=== PATIENT | male | born 1950 | race Caucasian/White ===

== ENCOUNTER 2021-01-27 16:20 | Emergency (ER) | payer BC, MEDICARE ==
[~2021-01-27] VITALS: Ht 180.3 cm; Wt 113.3 kg
--- NOTE | 2021-01-27 16:41 | ED General ---
General Chief Complaint: Dizziness/Syncope Stated Complaint: LOW BP History of Present Illness Date Seen by Provider: January 27, 2021 Time Seen by Provider: 16:30 Initial Comments 70-year-old male presents with complaint of feeling lightheaded and dizzy today. Primarily when changing positions from seated to standing or when bending over. He did check his blood pressure and it was low at home. He takes lisinopril 40 mg daily for the past 10 years for hypertension and has not had any recent changes to his medication. He has been taking doxycycline for the past 7 days for "diverticulitis". His doctor is in [facility]. Denies nausea or vomiting, but admits to decreased fluid intake because of loose stools. Allergies and Home Medications Allergies Coded Allergies: No Known Drug Allergies (Unverified , 01/27/21) Patient Home Medication List Home Medication List Reviewed: Yes Review of Systems Review of Systems Constitutional: No chills; dizziness; No fever; malaise; No weakness Respiratory: No cough, No short of breath Cardiovascular: No chest pain, No edema, No palpitations, No syncope Gastrointestinal: see HPI; No abdominal pain, No constipation; diarrhea, loss of appetite; No nausea, No vomiting Genitourinary: No decreased output, No frequency, No hematuria Musculoskeletal: No back pain, No joint pain Past Jlrsnot-[id number] Hx Past Med/Social Hx: Reviewed Nursing Past Med/Soc Hx Physical Exam Vital Signs Vital Signs - First Documented 01/27/21 16:27 Temp 36.3 Pulse 82 Resp 18 B/P (MAP) 111/62 (78) Pulse Ox 96 O2 Delivery Room Air Capillary Refill : Height, Weight, BMI Height: '" Weight: lbs. oz. kg; BMI Method: General Appearance: No Apparent Distress, WD/WN HEENT: PERRL/EOMI, TMs Normal, Normal ENT Inspection Neck: Non Tender, Supple Respiratory: Chest Non Tender, Lungs Clear, Normal Breath Sounds, No Accessory Muscle Use Cardiovascular: Regular Rate, Rhythm, No Edema, No JVD Gastrointestinal: Normal Bowel Sounds, Non Tender, Soft Back: Normal Inspection, No CVA Tenderness Extremity: Normal Capillary Refill, Normal Inspection, Non Tender Neurologic/Psychiatric: Alert, Oriented x3, No Motor/Sensory Deficits Skin: Normal Color, Warm/Dry Progress/Results/Core Measures Suspected Sepsis SIRS Temperature: Pulse: Respiratory Rate: Laboratory Tests 01/27/21 16:33: White Blood Count 11.9H Blood Pressure / Mean: Laboratory Tests 01/27/21 16:33: Creatinine 1.93H, Platelet Count 220, Total Bilirubin 0.5 Results/Orders Lab Results Laboratory Tests Test 01/27/21 16:33 01/27/21 17:09 Range/Units White Blood Count 11.9 H 4.3-11.0 10^3/uL Red Blood Count 4.07 L 4.35-5.85 10^6/uL Hemoglobin 13.7 13.3-17.7 G/DL Hematocrit 40 40-54 % Mean Corpuscular Volume 98 80-99 FL Mean Corpuscular Hemoglobin 34 25-34 PG Mean Corpuscular Hemoglobin Concent 34 32-36 G/DL Red Cell Distribution Width 14.0 10.0-14.5 % Platelet Count 220 130-400 10^3/uL Mean Platelet Volume 9.4 7.4-10.4 FL Immature Granulocyte % (Auto) 1 % Neutrophils (%) (Auto) 73 42-75 % Lymphocytes (%) (Auto) 13 12-44 % Monocytes (%) (Auto) 10 0-12 % Eosinophils (%) (Auto) 3 0-10 % Basophils (%) (Auto) 1 0-10 % Neutrophils # (Auto) 8.6 H 1.8-7.8 X 10^3 Lymphocytes # (Auto) 1.6 1.0-4.0 X 10^3 Monocytes # (Auto) 1.2 H 0.0-1.0 X 10^3 Eosinophils # (Auto) 0.3 0.0-0.3 10^3/uL Basophils # (Auto) 0.1 0.0-0.1 10^3/uL Immature Granulocyte # (Auto) 0.1 0.0-0.1 10^3/uL Percent Immature Platelet Fraction 1.7 0.0-7.6 % Sodium Level 137 135-145 MMOL/L Potassium Level 4.4 3.6-5.0 MMOL/L Chloride Level 100 98-107 MMOL/L Carbon Dioxide Level 25 21-32 MMOL/L Anion Gap 12 5-14 MMOL/L Blood Urea Nitrogen 25 H 7-18 MG/DL Creatinine 1.93 H 0.60-1.30 MG/DL Estimat Glomerular Filtration Rate 34 BUN/Creatinine Ratio 13 Glucose Level 115 H 70-105 MG/DL Calcium Level 9.4 8.5-10.1 MG/DL Corrected Calcium 9.2 8.5-10.1 MG/DL Total Bilirubin 0.5 0.1-1.0 MG/DL Aspartate Amino Transf (AST/SGOT) 21 5-34 U/L Alanine Aminotransferase (ALT/SGPT) 29 0-55 U/L Alkaline Phosphatase 73 40-136 U/L Total Protein 6.9 6.4-8.2 GM/DL Albumin 4.2 3.2-4.5 GM/DL Urine Color YELLOW Urine Clarity CLEAR Urine pH 8.0 5-9 Urine Specific [place] 1.015 L 1.016-1.022 Urine Protein TRACE H NEGATIVE Urine Glucose (UA) NEGATIVE NEGATIVE Urine Ketones NEGATIVE NEGATIVE Urine Nitrite NEGATIVE NEGATIVE Urine Bilirubin NEGATIVE NEGATIVE Urine Urobilinogen 0.2 < = 1.0 MG/DL Urine Leukocyte Esterase NEGATIVE NEGATIVE Urine RBC (Auto) NEGATIVE NEGATIVE Urine RBC NONE /HPF Urine WBC 0-2 /HPF Urine Squamous Epithelial Cells NONE /HPF Urine Crystals NONE /LPF Urine Bacteria TRACE /HPF Urine Casts PRESENT /LPF Urine Hyaline Casts 0-2 H /LPF Urine Mucus NEGATIVE /LPF Urine Culture Indicated NO My Orders Orders - ABUNDIOVENSTRICKY OWENS DO Ed Iv/Invasive Line Start (01/27/21 16:41) Ekg Tracing (01/27/21 16:41) Cbc With Automated Diff (01/27/21 16:41) Comprehensive Metabolic Panel (01/27/21 16:41) Urinalysis (01/27/21 16:41) Ns Iv 1000 Ml (Sodium Chloride 0.9%) (01/27/21 17:30) Ns Iv 1000 Ml (Sodium Chloride 0.9%) (01/27/21 17:12) Vital Signs/I&O 01/27/21 16:27 Temp 36.3 Pulse 82 Resp 18 B/P (MAP) 111/62 (78) Pulse Ox 96 O2 Delivery Room Air Capillary Refill : Progress Note : Progress Note Denies Hx of kidney problems, admits to not drinking as much for the past couple weeks. Advised to call his PCP tomorrow to arrange for repeat labs in 3 days. Also advised to cut his lisinopril dose from 40 to 20mg daily. Pt agrees and understands. ECG Initial ECG Impression Date: January 27, 2021 Initial ECG Impression Time: 16:30 Initial ECG Rate: 84 Initial ECG Rhythm: Normal Sinus Initial ECG Intervals: Normal Initial ECG Impression: Normal Initial ECG Comparisson: No Previous ECG Available Comment old inf ischemic change Departure Impression Primary Impression: Dizziness Additional Impressions: Dehydration ARF (acute renal failure) Qualified Codes: N17.9 - Acute kidney failure, unspecified Disposition: 01 HOME, SELF-CARE Condition: Improved Departure-Patient Inst. Decision time for Depature: 17:35 Referrals: NO,LOCAL PHYSICIAN (PCP/Family) Primary Care Physician Patient Instructions: Dehydration, Adult (DC), Kidney Failure (DC) Add. Discharge Instructions: Call your PCP, Dr Jayy Oliva tomorrow to arrange for REPEAT labs to check your kidney function in 3 days. Take 1/2 your blood pressure medication (Lisinopril) until instructed otherwise by your PCP. Take 20mg, NOT 40mg daily. All discharge instructions reviewed with patient and/or family. Voiced understanding. RICKY WAGNER DO January 27, 2021 16:41
[2021-01-27 16:55] LABS: BASOPHILS % (AUTO) 1 % (0-10); EOSINOPHILS % (AUTO) 3 % (0-10); HEMATOCRIT 40 % (40-54); HEMOGLOBIN 13.7 G/DL (13.3-17.7); LYMPHOCYTES % (AUTO) 13 % (12-44); MEAN CORPUSCULAR HEMOGLOBIN 34 PG (25-34); MEAN CORPUSCULAR HGB CONC 34 G/DL (32-36); MEAN CORPUSCULAR VOLUME 98 FL (80-99); MEAN PLATELET VOLUME 9.4 FL (7.4-10.4); MONOCYTES % (AUTO) 10 % (0-12); NEUTROPHILS % (AUTO) 73 % (42-75); PLATELET COUNT 220 10^3/uL (130-400); WHITE BLOOD COUNT 11.9 10^3/uL (4.3-11.0)
[2021-01-27 16:56] LABS: BASOPHILS # (AUTO) 0.1 10^3/uL (0.0-0.1); EOSINOPHILS # (AUTO) 0.3 10^3/uL (0.0-0.3); LYMPHOCYTES # (AUTO) 1.6 X 10^3 (1.0-4.0); MONOCYTES # (AUTO) 1.2 X 10^3 (0.0-1.0); NEUTROPHILS # (AUTO) 8.6 X 10^3 (1.8-7.8)
[2021-01-27] MEDS ORDERED: NS IV 1000 ML 1,000 ML ONE (17:12)
[2021-01-27 17:24] LABS: POTASSIUM 4.4 MMOL/L (3.6-5.0)
[2021-01-27 17:25] LABS: ALBUMIN 4.2 GM/DL (3.2-4.5); BILIRUBIN,TOTAL 0.5 MG/DL (0.1-1.0); CALCIUM 9.4 MG/DL (8.5-10.1); CREATININE SERUM 1.93 MG/DL (0.60-1.30); TOTAL PROTEIN 6.9 GM/DL (6.4-8.2)
[2021-01-27] MEDS ORDERED: NS IV 1000 ML 1,000 ML IV SCH (17:30)
[2021-01-27 17:31] LABS: COLOR,URINE YELLOW
[2021-01-27 17:32] LABS: BACTERIA,URINE TRACE /HPF; BILIRUBIN,URINE NEGATIVE (NEGATIVE); CLARITY,URINE CLEAR; GLUCOSE, URINE (UA) NEGATIVE (NEGATIVE); HYALINE CASTS, URINE 0-2 /LPF; KETONES,URINE NEGATIVE (NEGATIVE); LEUKOCYTE ESTERASE ,URINE NEGATIVE (NEGATIVE); NITRITE,URINE NEGATIVE (NEGATIVE); PROTEIN,URINE TRACE (NEGATIVE); WBC,URINE 0-2 /HPF
[2021-01-27 18:06] VITALS: BP 110/56
== END 2021-01-27 17:59 | disposition home or self-care (01) ==
LOC: ER FS 16:22
DX: E86.0 Dehydration (principal); N17.9 Acute kidney failure, unspecified; I10 Essential (primary) hypertension; Z79.899 Other long term (current) drug therapy
CPT/HCPCS: 36415; 80053; 81000; 85025; 93005

== ENCOUNTER → 2021-01-30 | Outpatient (CLI) | payer BC, MEDICARE ==
[2021-01-30 14:44] LABS: ALBUMIN 3.9 GM/DL (3.2-4.5); BILIRUBIN,TOTAL 0.8 MG/DL (0.1-1.0); CALCIUM 9.1 MG/DL (8.5-10.1); CREATININE SERUM 1.26 MG/DL (0.60-1.30); POTASSIUM 4.2 MMOL/L (3.6-5.0); TOTAL PROTEIN 6.5 GM/DL (6.4-8.2)
== END ==
LOC: LAB FS 12:59
DX: N17.9 Acute kidney failure, unspecified (principal); E86.0 Dehydration
CPT/HCPCS: 36415; 80053

== ENCOUNTER → 2021-03-25 | Outpatient (CLI) | payer BC, MEDICARE ==
--- NOTE | 2021-03-25 12:59 | Diagnostic Imaging Report ---
PROCEDURE: NONINVAS EXT1-2LEV [id number] REASON FOR EXAM: PAIN IN RIGHT LEG COMPARISON: None. Technique: Segmental pressures and Doppler study with ankle brachial indices and toe brachial indices was performed at rest. Systolic blood pressure in the right brachial artery is 113 mm of Hg Systolic blood pressure in the left brachial artery is 123 mm of Hg Systolic blood pressure in the right posterior tibial artery is 183 mm of Hg The ankle brachial index (COY) on the right side is 1.49 at rest. Systolic blood pressure in the left posterior tibial artery is 186 mm of Hg The ankle brachial index (COY) on the left side is 1.51 at rest. Systolic blood pressure in the right dorsalis pedis is 154 mm of Hg The toe brachial index (TBI) on the right side is 1.25 at rest. Systolic blood pressure in the left dorsalis pedis is 126 mm of Hg The toe brachial index (TBI) on the left side is 1.02 at rest. The waveform in the right posterior tibial artery is biphasic The waveform in the right dorsalis pedis artery is biphasic The waveform in the left posterior tibial artery is biphasic The waveform in the left dorsalis pedis artery is biphasic Disease Severity and Ankle-Brachial Index (COY) ([facility] Vascular Laboratory Criteria) [facility] Proc. April 2008;[id number] [email or web address] Disease severity Normal: At rest >0.9 After exercise >0.9 Mild: At rest 0.8-0.9 After exercise 0.5-0.9 Moderate: At rest 0.5-0.79 After exercise 0.15-0.49 Severe: At rest <0.5 After exercise <0.15 Disease Severity and Toe Brachial Index (TBI) 0.64 +/- .20 limbs normal 0.52 =/- .20 claudication in limbs 0.23 =/- .19 limbs with ulcers or ischemic rest pain IMPRESSION: 1.Normal COY bilaterally, with the right measuring 1.49 and the left measuring 1.51. 2.Normal biphasic waveforms in the bilateral posterior tibial and dorsalis pedis arteries. Dictated by: Dictated on workstation # [id number]
== END ==
LOC: RAD 12:45
PROVIDERS: ATTEND Family Medicine
DX: M79.604 Pain in right leg (principal)
CPT/HCPCS: 93922

== ENCOUNTER 2021-10-07 14:35 | Emergency (ER) | payer BC, MEDICARE ==
[~2021-10-07] VITALS: Ht 177.8 cm; Wt 113.4 kg
[2021-10-07] MEDS ORDERED: LIDOCAINE 1% INJ 20 ML VIAL INJ STA (15:04)
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
--- NOTE | 2021-10-07 15:47 | Diagnostic Imaging Report ---
Clinical indication: Patient status post fall with laceration to back of head. Exam: Axial CT scan of the brain without IV contrast with coronal and sagittal reformatted images. Auto Exposure Controls were utilized during the CT exam to meet ALARA standards for radiation dose reduction. Comparison: None. Findings: There is very minimal subdural blood along the right parafalcine frontal region. There is no other areas of intracranial hemorrhage. The remainder of the brain parenchyma is unremarkable with normal rodriguez-white matter distinction. There is brain parenchymal volume loss. There is mild chronic small vessel ischemic disease. There is no hydrocephalus. Basal cisterns are unremarkable. There is a small to moderate amount of extracranial soft tissue swelling and laceration involving the midline aspect of the head. Skin lore are seen posteriorly. The brain parenchymal volume appears appropriate for patient's age. There is normal rodriguez-white matter distinction. There is no significant midline shift or herniation. There is no evidence of hydrocephalus. The basal cisterns are unremarkable. There are old traumatic findings in the right and left nasal bones and frontal processes of the left maxilla. There is subtle medial bony concave deformity of the medial wall left orbit which is chronic. The skull, extracranial soft tissue, and orbits are unremarkable. There is mild mucosal thickening and secretions involving the left maxillary sinus. There is minimal mucosal thickening involving the right maxillary sinus. Temporal bones show no significant abnormality. Impression: 1: There is minimal acute subdural blood along the right frontal parafalcine region. 2: There is no other intracranial hemorrhage. The brain parenchyma is unremarkable. 3: There is a small to moderate amount of extracranial soft tissue swelling and laceration of the posterior aspect of the head. There is no acute skull fracture. 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 Results of this report were discussed with Dr. Junaid Oswald via the telephone on 10/07/2021 at 1539 hours. Dictated by: Dictated on workstation # [id number]
--- NOTE | 2021-10-07 15:58 | Diagnostic Imaging Report ---
CLINICAL INDICATION: Patient is status post fall at [facility]. Patient has pelvic pain. EXAM: CT scan of the pelvis performed without IV contrast with sagittal and coronal reformatted images. Auto Exposure Controls were utilized during the CT exam to meet ALARA standards for radiation dose reduction. COMPARISON: None. FINDINGS: There is no fracture or dislocation involving the pelvis or hips. There are moderately hypertrophic spurs involving the bilateral acetabular regions and proximal femoral head/neck junction region. There is hypertrophic enthesopathy involving the greater trochanters bilaterally and ischium. There are hypertrophic spurs involving lumbar spine and facet arthropathy. Partially visualized double-J ureteral stent on the left side seen in the region of the bladder. There is mild fat stranding adjacent to the distal left ureter. Diverticulosis involving the descending colon and sigmoid colon seen with no diverticulitis. There is a fat-containing left inguinal hernia measuring 2.9 cm in greatest dimension. IMPRESSION: 1: There is no fracture or dislocation of the pelvis or hips. 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 Dictated by: Dictated on workstation # [id number]
[2021-10-07 16:49] LABS: BASOPHILS # (AUTO) 0.1 10^3/uL (0.0-0.1); BASOPHILS % (AUTO) 0 % (0-10); EOSINOPHILS # (AUTO) 0.1 10^3/uL (0.0-0.3); EOSINOPHILS % (AUTO) 1 % (0-10); HEMATOCRIT 36 % (40-54); HEMOGLOBIN 12.1 g/dL (13.3-17.7); LYMPHOCYTES # (AUTO) 1.4 10^3/uL (1.0-4.0); LYMPHOCYTES % (AUTO) 12 % (12-44); MEAN CORPUSCULAR HEMOGLOBIN 33 pg (25-34); MEAN CORPUSCULAR HGB CONC 33 g/dL (32-36); MEAN CORPUSCULAR VOLUME 98 fL (80-99); MEAN PLATELET VOLUME 9.8 fL (9.0-12.2); MONOCYTES # (AUTO) 0.9 10^3/uL (0.0-1.0); MONOCYTES % (AUTO) 8 % (0-12); NEUTROPHILS # (AUTO) 8.9 10^3/uL (1.8-7.8); NEUTROPHILS % (AUTO) 78 % (42-75); PLATELET COUNT 213 10^3/uL (130-400); WHITE BLOOD COUNT 11.4 10^3/uL (4.3-11.0)
[2021-10-07 16:52] LABS: BILIRUBIN,URINE NEGATIVE (NEGATIVE); CLARITY,URINE SL CLOUDY; GLUCOSE, URINE (UA) NEGATIVE (NEGATIVE); KETONES,URINE NEGATIVE (NEGATIVE); LEUKOCYTE ESTERASE ,URINE TRACE (NEGATIVE); PROTEIN,URINE 1+ (NEGATIVE)
[2021-10-07 16:53] LABS: INR 0.9 (0.8-1.4); PROTHROMBIN TIME PATIENT 12.3 SEC (12.2-14.7)
[2021-10-07 17:01] LABS: COLOR,URINE ORANGE
[2021-10-07 17:02] LABS: BACTERIA,URINE NEGATIVE /HPF; NITRITE,URINE POSITIVE (NEGATIVE); RBC,URINE >100 /HPF; SQUAMOUS EPITHELIAL CELL,UR RARE /HPF; WBC,URINE 0-2 /HPF
[2021-10-07 17:04] LABS: BILIRUBIN,TOTAL 0.6 MG/DL (0.1-1.0); CALCIUM 9.3 MG/DL (8.5-10.1); CREATININE SERUM 1.06 MG/DL (0.60-1.30); POTASSIUM 4.2 MMOL/L (3.6-5.0); TOTAL PROTEIN 6.9 GM/DL (6.4-8.2)
[2021-10-07 17:05] LABS: ALBUMIN 4.4 GM/DL (3.2-4.5)
[2021-10-07 17:55] VITALS: BP 145/78
== END 2021-10-07 17:55 | disposition short-term general hospital (02) ==
LOC: EDUNIT# 14:35 → ER FS 14:36
DX: S06.5X0A Traumatic subdural hemorrhage without loss of consciousness, initial encounter (principal); S01.01XA Laceration without foreign body of scalp, initial encounter; S30.0XXA Contusion of lower back and pelvis, initial encounter; M53.3 Sacrococcygeal disorders, not elsewhere classified; I10 Essential (primary) hypertension; R40.2410 Glasgow coma scale score 13-15, unspecified time; W18.30XA Fall on same level, unspecified, initial encounter
CPT/HCPCS: 12002; 36415; 70450; 72192; 80053; 81000; 85025; 85610; 85730; 93041

== ENCOUNTER → 2022-05-28 | Outpatient (CLI) | payer BC, MEDICARE ==
--- NOTE | 2022-05-28 11:21 | Diagnostic Imaging Report ---
CLINICAL INDICATIONS: Patient with sinusitis and questionable lacrimal duct obstruction. Teeth pulled recently with infection. Lower lid ectropion. EXAM: Axial CT scan of the orbits and sella without contrast. Sagittal and coronal reformatted images are created. Auto Exposure Controls were utilized during the CT exam to meet ALARA standards for radiation dose reduction. COMPARISON: None. FINDINGS: Dental hardware is seen which causes streak artifact obscuring portions of the oral cavity and adjacent soft tissue structures. There is cystic and smooth erosive changes involving the maxillary right molar region which surrounds a partially impacted tooth. There is consolidation of the bilateral nasal lacrimal duct regions which appear similar bilaterally. There is no bony erosive or destructive process. There is a small amount of air in the upper aspect of the right nasolacrimal duct. Orbits and globes are intact. There is no periorbital or retrobulbar abnormality. There is no significant extracranial soft tissue abnormality is visualized. There is bony irregularity involving the right and left nasal bone regions which may be from remote traumatic changes. Chronic medial convexity of the medial left orbital wall noted. There is [id number] amount of mucosal thickening and fluid involving left maxillary sinus. There is mild mucosal thickening involving the right maxillary sinus. There is minimal mucosal thickening involving the ethmoid sinus. There is bony thickening/sclerosis involving left maxillary sinus. Mastoid air cells are clear. Limited visualization intracranial structures are unremarkable. IMPRESSION: 1: The right and left nasal lacrimal duct has similar appearance with consolidation within them which is nonspecific. This may represent secretions or normal mucosa. There is no mass or bony erosive changes seen in the regions. There is no periorbital or intraorbital soft tissue abnormality. Globes are intact. 2: There is paranasal sinus disease or chronic bony sinusitis changes involving the left maxillary sinus. 3: There is a smoothly remodeled bony erosive changes involving the maxillary right molar region with a partially impacted tooth seen in the area. Direct visualization would better evaluate. Dictated by: Dictated on workstation # [id number]
== END ==
LOC: RAD 08:53
PROVIDERS: ATTEND Internal Medicine Gastroenterology
DX: J01.90 Acute sinusitis, unspecified (principal)
CPT/HCPCS: 70480

== ENCOUNTER → 2022-05-28 | Outpatient (CLI) | payer BC, MEDICARE ==
--- NOTE | 2022-05-28 13:21 | Diagnostic Imaging Report ---
INDICATION: Right elbow pain. COMPARISON: None. FINDINGS: Multiple radiographic views of the right elbow show no fractures, dislocations, or other acute bony abnormalities identified. Joint spaces are well maintained throughout. The soft tissues appear unremarkable. No radiopaque foreign bodies are identified. IMPRESSION: No acute fractures or dislocations of the right elbow. Dictated by: Dictated on workstation # [id number]
== END ==
LOC: RAD FS 09:25
PROVIDERS: ATTEND Nurse Practitioner Family
DX: M25.521 Pain in right elbow (principal)
CPT/HCPCS: 73080

== ENCOUNTER → 2022-07-29 | Outpatient (CLI) | payer BC, MEDICARE | LOC: CARDFS 13:34 | PROVIDERS: ATTEND Nurse Practitioner Family | DX: I35.0 Nonrheumatic aortic (valve) stenosis (principal); I51.7 Cardiomegaly | CPT/HCPCS: 93306 ==

== ENCOUNTER 2023-05-15 12:47 | Emergency (ER) | payer BC, MEDICARE ==
--- NOTE | 2023-05-15 13:14 | ED General ---
General Chief Complaint: Abdominal/GI Problems Stated Complaint: EPIGASTRIC/RT SHOULDER PAIN Source of Information: Patient History of Present Illness Date Seen by Provider: May 15, 2023 Time Seen by Provider: 12:52 Initial Comments 72-year-old male presenting with complaints of left-sided lower chest pain and epigastric pain for the last 2 days. He states that it has been constant but then he later states that pain comes and goes in intensity. He feels that it gets worse when he is trying to go from a sitting to standing position or moving. He has had had right shoulder pain since waking up this morning. He denies any fall or injury. He denies having any nausea or vomiting. He does report having some cough and mucus in his lungs this morning and was having some trouble trying to cough any mucus up. He reports that he is waiting to go on Tuesday to for a heart cath to look at a blocked artery. Timing/Duration: 2-3 Days Severity: Moderate Modifying Factors: worse with Movement Associated Systoms: Chest Pain (left lower lateral chest pain and epigastric pain), Cough; No Diaphoresis, No Fever/Chills, No Headaches, No Loss of Appetite, No Malaise, No Nausea/Vomiting, No Rash, No Seizure, No Shortness of Air, No Syncope, No Weakness Allergies and Home Medications Allergies Coded Allergies: No Known Drug Allergies (Unverified , 01/27/21) Patient Home Medication List Home Medication List Reviewed: Yes Azithromycin (Azithromycin) 500 Mg Tablet, 500 MG PO DAILY Prescribed by: LUANNE BLANCA on 05/15/23 1500 Review of Systems Review of Systems Constitutional: No chills, No diaphoresis, No dizziness, No fever, No malaise EENTM: no symptoms reported Respiratory: see HPI Cardiovascular: see HPI Gastrointestinal: No nausea, No vomiting Genitourinary: No dysuria Musculoskeletal: see HPI, joint pain (right shoulder pain) Skin: No rash Psychiatric/Neurological: No Symptoms Reported Past Ldfluog-Ciycfe-Ntaiep Hx Immunizations Up To Date First/Initial COVID19 Vaccinat: Jul 2021 Second COVID19 Vaccination Dewayne: Aug 2021 Seasonal Allergies Seasonal Allergies: No Past Medical History Surgery/Hospitalization HX: Aortic stenosis, HTN, Hyperlipidemia, Cholecystectomy, Appendectomy, Tonsillectomy and adenoidectomy Surgeries: Yes (rushing wu surgery, Inguinal hernia repair, ) Adenoidectomy, Appendectomy, Bowel Surgery, Gallbladder Cardiac: Yes High Cholesterol, Hypertension Neurological: No Genitourinary: Yes Benign Prostatic Hyperpl Gastroesophageal Reflux, Diverticulosis Musculoskeletal: Yes Gout Endocrine: No HEENT: Yes (wears glasses) Cancer: No Psychosocial: No Integumentary: No Blood Disorders: No Physical Exam Vital Signs Vital Signs - First Documented 05/15/23 12:55 Temp 37.0 Pulse 78 Resp 12 B/P (MAP) 120/61 (80) Pulse Ox 93 O2 Delivery Room Air Capillary Refill : Height, Weight, BMI Height: '" Weight: lbs. oz. 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 Norm as Tested Skin: Normal Color, Warm/Dry Focused Exam Lactate Level 05/15/23 13:10: Lactic Acid Level 0.63 Lactic Acid Level Laboratory Tests Test 05/15/23 13:10 Lactic Acid Level 0.63 MMOL/L (0.50-2.00) Progress/Results/Core Measures Suspected Sepsis SIRS Temperature: Pulse: Respiratory Rate: Laboratory Tests 05/15/23 13:10: White Blood Count 13.0H Blood Pressure / Mean: 05/15/23 13:10: Lactic Acid Level 0.63 Laboratory Tests 05/15/23 13:10: Creatinine 1.38H, INR Comment 0.9, Platelet Count 177, Total Bilirubin 0.6 Results/Orders Lab Results Laboratory Tests Test 05/15/23 13:10 05/15/23 13:23 Range/Units White Blood Count 13.0 H 4.3-11.0 10^3/uL Red Blood Count 3.61 L 4.30-5.52 10^6/uL Hemoglobin 11.6 L 13.3-17.7 g/dL Hematocrit 34 L 40-54 % Mean Corpuscular Volume 95 80-99 fL Mean Corpuscular Hemoglobin 32 25-34 pg Mean Corpuscular Hemoglobin Concent 34 32-36 g/dL Red Cell Distribution Width 12.8 10.0-14.5 % Platelet Count 177 130-400 10^3/uL Mean Platelet Volume 9.3 9.0-12.2 fL Immature Granulocyte % (Auto) 0 % Neutrophils (%) (Auto) 84 H 42-75 % Lymphocytes (%) (Auto) 6 L 12-44 % Monocytes (%) (Auto) 8 0-12 % Eosinophils (%) (Auto) 1 0-10 % Basophils (%) (Auto) 1 0-10 % Neutrophils # (Auto) 11.0 H 1.8-7.8 10^3/uL Lymphocytes # (Auto) 0.8 L 1.0-4.0 10^3/uL Monocytes # (Auto) 1.0 0.0-1.0 10^3/uL Eosinophils # (Auto) 0.2 0.0-0.3 10^3/uL Basophils # (Auto) 0.1 0.0-0.1 10^3/uL Immature Granulocyte # (Auto) 0.0 0.0-0.1 10^3/uL Neutrophils % (Manual) 83 % Lymphocytes % (Manual) 10 % Monocytes % (Manual) 6 % Eosinophils % (Manual) 1 % Prothrombin Time 12.5 12.2-14.7 SEC INR Comment 0.9 0.8-1.4 Activated Partial Thromboplast Time 28 24-35 SEC Sodium Level 128 L 135-145 MMOL/L Potassium Level 4.9 3.6-5.0 MMOL/L Chloride Level 93 L 98-107 MMOL/L Carbon Dioxide Level 24 21-32 MMOL/L Anion Gap 11 5-14 MMOL/L Blood Urea Nitrogen 28 H 7-18 MG/DL Creatinine 1.38 H 0.60-1.30 MG/DL Estimat Glomerular Filtration Rate 54 BUN/Creatinine Ratio 20 Glucose Level 146 H 70-105 MG/DL Lactic Acid Level 0.63 0.50-2.00 MMOL/L Calcium Level 9.3 8.5-10.1 MG/DL Corrected Calcium 9.5 8.5-10.1 MG/DL Magnesium Level 2.0 1.6-2.4 MG/DL Total Bilirubin 0.6 0.1-1.0 MG/DL Aspartate Amino Transf (AST/SGOT) 18 5-34 U/L Alanine Aminotransferase (ALT/SGPT) 14 0-55 U/L Alkaline Phosphatase 111 40-136 U/L Troponin I < 0.30 <0.30 NG/ML Pro-B-Type Natriuretic Peptide 164.8 H <125.0 PG/ML Total Protein 6.3 L 6.4-8.2 GM/DL Albumin 3.7 3.2-4.5 GM/DL Lipase 12 8-78 U/L SARS-CoV-2 RNA (RT-PCR) Not Detected Not Detecte My Orders Orders - LUANNE BLANCA MD Cbc With Automated Diff (05/15/23 13:04) Magnesium (05/15/23 13:04) Chest 1 View Ap/Pa Only (05/15/23 13:04) Ekg Tracing (05/15/23 13:04) Comprehensive Metabolic Panel (05/15/23 13:04) Protime With Inr (05/15/23 13:04) Partial Thromboplastin Time (05/15/23 13:04) O2 (05/15/23 13:04) Monitor-Rhythm Ecg Trace Only (05/15/23 13:04) Ed Iv/Invasive Line Start (05/15/23 13:04) Lipase (05/15/23 13:04) Troponin I Fs (05/15/23 13:04) Probnp Fs (05/15/23 13:04) Shoulder 3 View Right (05/15/23 13:04) Covid 19 Inhouse Test (05/15/23 13:04) Ketorolac Injection (Ketorolac Injection (05/15/23 13:15) Lactic Acid Analyzer (05/15/23 13:15) Manual Differential (05/15/23 13:10) Ns Iv 1000 Ml (Ns Iv 1000 Ml) (05/15/23 13:50) Ceftriaxone Iv/Im (Ceftriaxone Iv/Im) (05/15/23 14:42) Azithromycin Tablet (Azithromycin Tabl (05/15/23 14:42) Vital Signs/I&O 05/15/23 05/15/23 12:55 15:09 Temp 37.0 37.0 Pulse 78 75 Resp 12 12 B/P (MAP) 120/61 (80) 122/67 Pulse Ox 93 94 O2 Delivery Room Air Room Air Capillary Refill : Progress Note #1: Progress Note Potential diagnosis of pleuritic chest pain, pneumonia, myocardial infarction, pleural effusion, musculoskeletal chest wall pain, GERD. Placed on cardiac manager monitoring and my initial interpretation is that his rate is a sinus rhythm with a heart rate in the 70s. Obtain electrocardiogram to look in more detail for acute ischemia or arrhythmia. Establish peripheral IV access and send labs for complete blood count, comprehensive metabolic profile, troponin, lipase, magnesium, proBNP, coagulation factors. COVID swab to check for infection, chest x-ray 1 view to look for signs of infiltrate or effusion or pathology to cause pain. X-rays of the right shoulder again look for potential source of his pain. Administer Toradol 15 mg IV x1 to help with pain and inflammation. Progress Note #2: Time: 13:39 Progress Note Complete blood count shows white blood cell count upper limit of normal at 13,00 0. Mild anemia with hemoglobin of 11.6. Normal platelets of 177. His comprehensive metabolic profile shows some chronic hyponatremia with a sodium of 128. His potassium was okay at 4.9. His BUN was slightly elevated to 28 with a creatinine of 1.38. Glucose slightly elevated to 146. He had a negative lactic acid at 0.63. Magnesium was normal at 2. His troponin I was less than 0.3. Considering he has had pain constantly for 2 days if this was acute coronary syndrome or myocardial infarction I would expect this to be elevated by now. His proBNP value was 164.8. Lipase normal at 12. 1408 ordered a liter of normal saline to try and help with hydration since he has elevated BUN and creatinine. His 1 view chest x-ray showed opacity in his right lung base concerning for possible infection and 3 views of the right shoulder showed chronic degenerative changes. He has had some hypoxia with oxygen down to 87% on room air at times. This is likely due to his RLL pneumonia seen on CXR. Will start him on Rocephin 1 gm IV for pneumonia along with Azithromycin 500 mg po x 1 for pneumonia. If he maintains oxygen saturation at least 91% on room air and tolerates the antibiotics will plan on discharge to home. If he is dropping down into the 80s for his oxygen saturation then will have to check about at least observation admit since he does not use oxygen at home. Progress Note #3: Time: 14:58 Progress Note Covid swab is negative. Will monitor to see how his oxygen is doing on room air while antibiotics infuse. If maintaining oxygen saturation above 91% will discharge to home on antibiotics and litigation counsel on follow up and return precautions. If dropping into the 80s for his oxygen saturation then will check about possible observation admit for pneumonia with hypoxia. 1530 patient's oxygen saturations maintaining 92 to 96% on room air. Will discharge on Zithromax. Sent for 4 additional days of Zithromax 500 mg daily to finish out a course for pneumonia. He was given the first dose of Zithromax 500 mg here in the ED along with 1 g of Rocephin IV. Encouraged to try Tylenol and/or ibuprofen to help with the arthritis pain in his shoulder. Counseled to try taking Mucinex to help with congestion and cough. Make sure he is taking several deep breaths every hour while awake to help with improving his oxygen as well as clearing the pneumonia. Return or be seen again if symptoms are worsening instead of improving ECG Initial ECG Impression Date: May 15, 2023 Initial ECG Impression Time: 13:16 Initial ECG Rate: 75 Initial ECG Rhythm: Normal Sinus Initial ECG Comparisson: Unchanged (01/27/2021) Comment On my personal interpretation and review the electrocardiogram shows sinus rhythm with a heart rate of 75 bpm. There is no acute ST elevation. [place] interval slightly prolonged at 209 ms. He has inferior Q waves consistent with a possible history of myocardial inferior infarction. QT interval 369 ms with a QTc interval 398 ms. Overall appears similar to a tracing from January 27, 2021. Diagnostic Imaging Diagonstic Imaging: Xray Plain Films/CT/US/NM/MRI: chest Comments [facility] [place], [place] NAME: [facility] REC#: [id number] PT STATUS: REG ER : 1950 PHYSICIAN: LUANNE BLANCA MD ADMIT DATE: 05/15/23/ER FS Signed Date of Exam:05/15/23 CHEST 1 VIEW AP/PA ONLY CHEST 1 VIEW AP/PA ONLY INDICATION: cough, left sided chest pain x 2 days. COMPARISON: None. FINDINGS: Lungs: Low lung volume. Right basilar airspace opacity. Pleura: No pleural effusion or pneumothorax. Heart and Mediastinum: Prominent cardiac silhouette. Pulmonary vascular congestion.. Osseous Structures and Soft Tissues: No acute osseous abnormality. Normal soft tissues. IMPRESSION: Right basilar airspace opacity may represent infection or atelectasis. Low lung volume. Dictated by: Dictated on workstation # [id number] Dict: 05/15/23 1337 Trans: 05/15/23 1339 [facility] [id number] Interpreted by: MARY SAGE DO Electronically signed by: MARY SAGE DO 05/15/23 1339 Reviewed: Reviewed by Me Diagonstic Imaging: Xray Plain Films/CT/US/NM/MRI: other (Right shoulder) Comments [facility] [place] [place] NAME: [facility] REC#: [id number] PT STATUS: REG ER : 1950 PHYSICIAN: LUANNE BLANCA MD ADMIT DATE: 05/15/23/ER FS Draft Date of Exam:05/15/23 SHOULDER 3 VIEW RIGHT EXAMINATION: Right shoulder 2 or more views HISTORY: Shoulder pain COMPARISON: None available. FINDINGS: There is severe right glenohumeral osteoarthritis. No fracture is seen. There is moderate acromioclavicular osteoarthritis. No dislocation. IMPRESSION: 1. Severe right glenohumeral osteoarthritis. Dictated on workstation # [id number] Dict: 05/15/238 Trans: 05/15/23 1344 [facility] [id number] Interpreted by: SHANEKA ANDREWS MD Electronically signed by: Reviewed: Reviewed by Me Departure Impression Primary Impression: Pneumonia of right lower lobe due to infectious organism Additional Impressions: Dehydration Arthritis of shoulder region, right, degenerative Qualified Codes: M19.011 - Primary osteoarthritis, right shoulder Disposition: 01 HOME, SELF-CARE Condition: Improved Departure-Patient Inst. Decision time for Depature: 15:07 Referrals: MERT DYE MD (PCP) Primary Care Physician Patient Instructions: Pneumonia, Adult ED, Dehydration, Adult ED, Osteoarthritis (DC) Add. Discharge Instructions: Your Covid test was negative. Try to keep sipping on fluids to stay well-hydrated. Take the full course of antibiotics to treat for pneumonia. Try to consciously take deep breaths several times in an hour to help expand your lungs and help with the oxygen saturation level. Consider taking Plain Mucinex over the counter to help loosen mucus and congestion in your lungs. If having worsening symptoms or develop trouble breathing and shortness of breath then you should be seen again for further evaluation. All discharge instructions reviewed with patient and/or family. Voiced understanding. Scripts Azithromycin (Azithromycin) 500 Mg Tablet 500 MG PO DAILY for Pneumonia for 4 Days, #4 TAB 0 Refills Prov: LUANNE BLANCA MD 05/15/23 LUANNE BLANCA MD May 15, 2023 13:14
[2023-05-15] MEDS ORDERED: KETOROLAC INJ 15 MG/ML VIAL IVP STA (13:15)
[2023-05-15 13:16] LABS: BASOPHILS # (AUTO) 0.1 10^3/uL (0.0-0.1); BASOPHILS % (AUTO) 1 % (0-10); EOSINOPHILS # (AUTO) 0.2 10^3/uL (0.0-0.3); EOSINOPHILS % (AUTO) 1 % (0-10); HEMATOCRIT 34 % (40-54); HEMOGLOBIN 11.6 g/dL (13.3-17.7); LYMPHOCYTES # (AUTO) 0.8 10^3/uL (1.0-4.0); LYMPHOCYTES % (AUTO) 6 % (12-44); MEAN CORPUSCULAR HEMOGLOBIN 32 pg (25-34); MEAN CORPUSCULAR HGB CONC 34 g/dL (32-36); MEAN CORPUSCULAR VOLUME 95 fL (80-99); MEAN PLATELET VOLUME 9.3 fL (9.0-12.2); MONOCYTES % (AUTO) 8 % (0-12); NEUTROPHILS % (AUTO) 84 % (42-75); PLATELET COUNT 177 10^3/uL (130-400)
[2023-05-15 13:36] LABS: INR 0.9 (0.8-1.4); PROTHROMBIN TIME PATIENT 12.5 SEC (12.2-14.7)
[2023-05-15 13:38] LABS: ALANINE AMINOTRANSFERASE 14 U/L (0-55); ALBUMIN 3.7 GM/DL (3.2-4.5); ALKALINE PHOSPHATASE 111 U/L (40-136); BILIRUBIN,TOTAL 0.6 MG/DL (0.1-1.0); BUN/CREATININE RATIO 20; CALCIUM 9.3 MG/DL (8.5-10.1); CARBON DIOXIDE 24 MMOL/L (21-32); CHLORIDE 93 MMOL/L (98-107); CREATININE SERUM 1.38 MG/DL (0.60-1.30); GFR ESTIMATED 54; GLUCOSE 146 MG/DL (70-105); LIPASE 12 U/L (8-78); POTASSIUM 4.9 MMOL/L (3.6-5.0); SODIUM 128 MMOL/L (135-145); TOTAL PROTEIN 6.3 GM/DL (6.4-8.2)
--- NOTE | 2023-05-15 13:40 | Diagnostic Imaging Report ---
CHEST 1 VIEW AP/PA ONLY INDICATION: cough, left sided chest pain x 2 days. COMPARISON: None. FINDINGS: Lungs: Low lung volume. Right basilar airspace opacity. Pleura: No pleural effusion or pneumothorax. Heart and Mediastinum: Prominent cardiac silhouette. Pulmonary vascular congestion.. Osseous Structures and Soft Tissues: No acute osseous abnormality. Normal soft tissues. IMPRESSION: Right basilar airspace opacity may represent infection or atelectasis. Low lung volume. Dictated by: Dictated on workstation # [id number]
[2023-05-15 13:42] LABS: EOSINOPHILS % (MANUAL) 1 %; LYMPHOCYTES % (MANUAL) 10 %; MONOCYTES % (MANUAL) 6 %; NEUTROPHILS % (MANUAL) 83 %
--- NOTE | 2023-05-15 13:45 | Diagnostic Imaging Report ---
EXAMINATION: Right shoulder 2 or more views HISTORY: Shoulder pain COMPARISON: None available. FINDINGS: There is severe right glenohumeral osteoarthritis. No fracture is seen. There is moderate acromioclavicular osteoarthritis. No dislocation. IMPRESSION: 1. Severe right glenohumeral osteoarthritis. Dictated by: Dictated on workstation # [id number]
[2023-05-15] MEDS ORDERED: NS IV 1000 ML 1,000 ML IV STA (13:50)
[2023-05-15] MEDS ORDERED: AZITHROMYCIN 250 MG TABLET PO STA (14:42)
[2023-05-15] MEDS ORDERED: cefTRIAXone IV/IM 1,000 MG in NS (IVPB) 50 ML 50 ML IV STA (14:42)
[2023-05-15] MEDS ORDERED: AZIT500T9 PO (15:00)
[2023-05-15 15:09] VITALS: BP 122/67
== END 2023-05-15 15:09 | disposition home or self-care (01) ==
LOC: EDUNIT# 12:47 → ER FS 12:50
DX: J16.8 Pneumonia due to other specified infectious organisms (principal); E86.0 Dehydration; M19.011 Primary osteoarthritis, right shoulder; D64.9 Anemia, unspecified; E87.1 Hypo-osmolality and hyponatremia; Z20.822 Contact with and (suspected) exposure to COVID-19
CPT/HCPCS: 36415; 71045; 73030; 80053; 83605; 83690; 83735; 83880; 84484; 85007; 85027; 85610; 85730; 87636; 93005; 93041

== ENCOUNTER 2023-06-27 11:51 | Emergency (ER) | payer BC, MEDICARE ==
[~2023-06-27] VITALS: Ht 180.3 cm; Wt 108.9 kg
[2023-06-27 11:51] VITALS: BP 175/87
[~2023-06-27 11:51] MED LIST: AZIT500T9 PO
[2023-06-27 12:21] LABS: BASOPHILS # (AUTO) 0.1 10^3/uL (0.0-0.1); BASOPHILS % (AUTO) 1 % (0-10); EOSINOPHILS # (AUTO) 0.3 10^3/uL (0.0-0.3); EOSINOPHILS % (AUTO) 3 % (0-10); HEMATOCRIT 39 % (40-54); HEMOGLOBIN 13.2 g/dL (13.3-17.7); LYMPHOCYTES # (AUTO) 1.2 10^3/uL (1.0-4.0); LYMPHOCYTES % (AUTO) 12 % (12-44); MEAN CORPUSCULAR HEMOGLOBIN 32 pg (25-34); MEAN CORPUSCULAR HGB CONC 34 g/dL (32-36); MEAN CORPUSCULAR VOLUME 95 fL (80-99); MEAN PLATELET VOLUME 9.5 fL (9.0-12.2); MONOCYTES # (AUTO) 0.8 10^3/uL (0.0-1.0); MONOCYTES % (AUTO) 8 % (0-12); NEUTROPHILS # (AUTO) 7.6 10^3/uL (1.8-7.8); NEUTROPHILS % (AUTO) 76 % (42-75); PLATELET COUNT 230 10^3/uL (130-400)
--- NOTE | 2023-06-27 12:27 | Diagnostic Imaging Report ---
INDICATION: intermittent chest pain x 1 month COMPARISON: 05/15/2023 FINDINGS: Single frontal view of the chest demonstrates normal heart size and pulmonary vascularity. The lungs are well aerated and clear. No large pleural effusion or pneumothorax is seen. The visualized osseous structures show no acute abnormalities. IMPRESSION: 1. No acute cardiopulmonary process. Dictated by: Dictated on workstation # [id number]
--- NOTE | 2023-06-27 12:35 | ED Chest Pain ---
General Chief Complaint: Chest Pain Stated Complaint: CHEST PAIN Nursing Triage Note: PT AMBULATE TO ROOM FS06 WITHOUT DIFFICULTY WITH C/O CHEST PAIN "FOR WEEKS". PT REPORTS HAVING STENTS PLACE ON 06/01/23 AND HAS HAD CHEST PAIN SINCE THEN. Source: patient History of Present Illness Date Seen by Provider: Jun 27, 2023 Time Seen by Provider: 11:51 Initial Comments 72-year-old male presenting with complaints of intermittent chest pain off and on since he had stent placed June 01. He states he has had chest pain ever since then. He is scheduled to have a stent placed with [facility] at the beginning of July. He is supposed to have a TAVR procedure after the stent is placed. He does have aortic stenosis. He is not currently having any chest pain on arrival to the ED. He states the pain has been coming and going at different times over the last several weeks. He had some pain last night and when he talked to relative who is a doctor he was told to be evaluated in the ER. 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 NTG SL LEAD JAVA PROGRAMMER: No Associated Symptoms: No abdominal pain, No back pain, No diaphoresis, No dizziness, No edema, No fatigue, No fever/chills, No headache, No heartburn, No nausea/vomiting, No rash, No shortness of breath, No swelling/lump in chest, No syncope, No weakness Allergies and Home Medications Allergies Coded Allergies: No Known Drug Allergies (Unverified , 01/27/21) Patient Home Medication List Home Medication List Reviewed: Yes Azithromycin (Azithromycin) 500 Mg Tablet, 500 MG PO DAILY Prescribed by: LUANNE BLANCA on 05/15/23 1500 Review of Systems Review of Systems Constitutional: No chills, No fever EENTM: No Symptoms Reported Respiratory: No Symptoms Reported Cardiovascular: See HPI Gastrointestinal: No Symptoms Reported Genitourinary: No Symptoms Reported Musculoskeletal: no symptoms reported Skin: no symptoms reported Psychiatric/Neurological: No Symptoms Reported Past Vmaevqk-Hiygjx-Djfefx Hx Patient Social History Tobacco Use?: No Smoking Status: Never a Smoker Smokeless Tobacco Frequency: Never a User Use of E-Cig and/or Vaping dev: No Use of E-Cig and/or Vaping Tutu: Never a User Substance use?: No Alcohol Use?: Yes Alcohol Frequency: Once in a while Pt feels they are or have been: No Immunizations Up To Date First/Initial COVID19 Vaccinat: Jul 2021 Second COVID19 Vaccination Dewayne: Aug 2021 Third COVID19 Vaccination Date: Jul 2021 Seasonal Allergies Seasonal Allergies: No Past Medical History Surgery/Hospitalization HX: Aortic stenosis, HTN, Hyperlipidemia, Cholecystectomy, Appendectomy, Tonsillectomy and adenoidectomy Surgeries: Yes (rushing wu surgery, Inguinal hernia repair, ) Adenoidectomy, Appendectomy, Bowel Surgery, Gallbladder Cardiac: Yes High Cholesterol, Hypertension Neurological: No Genitourinary: Yes Benign Prostatic Hyperpl Gastroesophageal Reflux, Diverticulosis Musculoskeletal: Yes Gout Endocrine: No HEENT: Yes (wears glasses) Cancer: No Psychosocial: No Integumentary: No Blood Disorders: No Physical Exam Vital Signs Vital Signs - First Documented 06/27/23 11:51 Temp 36.5 Pulse 75 Resp 17 B/P (MAP) 175/87 (116) Pulse Ox 98 O2 Delivery Room Air Capillary Refill : Less Than 3 Seconds Height, Weight, BMI Height: '" Weight: lbs. oz. kg; 33.00 BMI Method: General Appearance: No Apparent Distress, WD/WN HEENT: PERRL/EOMI, Pharynx Normal Neck: Full Range of Motion, Normal Inspection, Non Tender, Supple; No Carotid Bruit Respiratory: Chest Non Tender, Lungs Clear, Normal Breath Sounds, No Accessory Muscle Use, No Respiratory Distress Cardiovascular: Regular Rate, Rhythm, Normal Peripheral Pulses, Systolic Murmur (4/6 systolic ejection murmur) Gastrointestinal: Normal Bowel Sounds, No Pulsatile Mass, Non Tender, Soft Extremity: Normal Capillary Refill, Normal Inspection, No Pedal Edema Neurologic/Psychiatric: Alert, Oriented x3, spout worker II-XII Norm as Tested Skin: Normal Color, Warm/Dry Progress/Results/Core Measures Results/Orders Lab Results Laboratory Tests Test 06/27/23 11:56 Range/Units White Blood Count 10.0 4.3-11.0 10^3/uL Red Blood Count 4.15 L 4.30-5.52 10^6/uL Hemoglobin 13.2 L 13.3-17.7 g/dL Hematocrit 39 L 40-54 % Mean Corpuscular Volume 95 80-99 fL Mean Corpuscular Hemoglobin 32 25-34 pg Mean Corpuscular Hemoglobin Concent 34 32-36 g/dL Red Cell Distribution Width 13.4 10.0-14.5 % Platelet Count 230 130-400 10^3/uL Mean Platelet Volume 9.5 9.0-12.2 fL Immature Granulocyte % (Auto) 0 % Neutrophils (%) (Auto) 76 H 42-75 % Lymphocytes (%) (Auto) 12 12-44 % Monocytes (%) (Auto) 8 0-12 % Eosinophils (%) (Auto) 3 0-10 % Basophils (%) (Auto) 1 0-10 % Neutrophils # (Auto) 7.6 1.8-7.8 10^3/uL Lymphocytes # (Auto) 1.2 1.0-4.0 10^3/uL Monocytes # (Auto) 0.8 0.0-1.0 10^3/uL Eosinophils # (Auto) 0.3 0.0-0.3 10^3/uL Basophils # (Auto) 0.1 0.0-0.1 10^3/uL Immature Granulocyte # (Auto) 0.0 0.0-0.1 10^3/uL Prothrombin Time 13.0 12.2-14.7 SEC INR Comment 1.0 0.8-1.4 Activated Partial Thromboplast Time 27 24-35 SEC Sodium Level 134 L 135-145 MMOL/L Potassium Level 3.9 3.6-5.0 MMOL/L Chloride Level 95 L 98-107 MMOL/L Carbon Dioxide Level 26 21-32 MMOL/L Anion Gap 13 5-14 MMOL/L Blood Urea Nitrogen 8 7-18 MG/DL Creatinine 0.81 0.60-1.30 MG/DL Estimat Glomerular Filtration Rate 93 BUN/Creatinine Ratio 10 Glucose Level 145 H 70-105 MG/DL Calcium Level 9.8 8.5-10.1 MG/DL Corrected Calcium 9.5 8.5-10.1 MG/DL Magnesium Level 1.6 1.6-2.4 MG/DL Total Bilirubin 0.8 0.1-1.0 MG/DL Aspartate Amino Transf (AST/SGOT) 17 5-34 U/L Alanine Aminotransferase (ALT/SGPT) 13 0-55 U/L Alkaline Phosphatase 121 40-136 U/L Troponin I < 0.30 <0.30 NG/ML Pro-B-Type Natriuretic Peptide 852.6 H <125.0 PG/ML Total Protein 7.2 6.4-8.2 GM/DL Albumin 4.4 3.2-4.5 GM/DL Lipase 27 8-78 U/L My Orders Orders - LUANNE BLACNA MD Cbc And Automated Diff (06/27/23 12:01) Magnesium (06/27/23 12:) Chest 1 View Ap/Pa Only (06/27/23 12:) Ekg Tracing (06/27/23 12:) Comprehensive Metabolic Panel (06/27/23 12:) Protime With Inr (06/27/23:) Partial Thromboplastin Time (06/27/23:) O2 (06/27/23:) Monitor-Rhythm Ecg Trace Only (06/27/23 12:) Ed Iv/Invasive Line Start (06/27/23 12:) Lipase (06/27/23 12:) Troponin I Fs (06/27/23 12:) Probnp Fs (06/27/23 12:01) Vital Signs/I&O 06/27/23 06/27/23 11:51 11:51 Temp 36.5 Pulse 75 Resp 17 B/P (MAP) 175/87 (116) Pulse Ox 98 O2 Delivery Room Air Room Air Blood Pressure Mean: 116 Progress Progress Note #1: Progress Note Differential diagnosis includes stent stenosis, myocardial infarction, aortic stenosis, angina. Obtain electrocardiogram and placed on cardiac nsh teacher. My initial interpretation of the cardiac nsh teacher shows sinus rhythm with a heart rate in the 60s. His electrocardiogram did not show any ST elevation. Obtain peripheral IV access and send labs for complete blood count, comprehensive metabolic profile, coagulation factors, troponin, proBNP, magnesium, lipase. Since his symptoms most recently were last night and he is not having any pain on arrival to the ED and a single troponin would be able to tell if he was having an acute heart attack or heart damage with the chest pain. Progress Note #2: Progress Note And no acute significant abnormality on his complete blood count. His comprehensive metabolic profile was negative for any elevation of the troponin. Coagulation factors are normal. Magnesium was slightly low at 1.6. Lipase was normal. Chest x-ray was not showing any acute infiltrate. Reassured patient and encouraged to follow-up with . He states that he actually had received a call from and they moved his cardiac catheterization up to this . Initial ECG Impression Date: Jun 27, 2023 Initial ECG Impression Time: 11:56 Initial ECG Rate: 66 Initial ECG Rhythm: Normal Sinus Initial ECG Comparisson: Unchanged (05/15/2023) Comment Normal sinus rhythm with a heart rate of 66 bpm. MA interval [address] elevation. QT interval 390 ms with a QTc interval 403 ms. Overall appears similar to tracing from May 15, 2023. Diagnostic Imaging Diagonstic Imaging: Xray Plain Films/CT/US/NM/MRI: chest Comments [facility], [place] NAME: MARIEL DONOVAN [facility] REC#: [id number] PT STATUS: REG ER : 1950 PHYSICIAN: LUANNE BLANCA MD ADMIT DATE: 06/27/23/ER FS Draft Date of Exam:06/27/23 CHEST 1 VIEW AP/PA ONLY INDICATION: intermittent chest pain x 1 month COMPARISON: 05/15/2023 FINDINGS: Single frontal view of the chest demonstrates normal heart size and pulmonary vascularity. The lungs are well aerated and clear. No large pleural effusion or pneumothorax is seen. The visualized osseous structures show no acute abnormalities. IMPRESSION: 1. No acute cardiopulmonary process. Dictated on workstation # [id number] Dict: 06/27/23 1225 Trans: 06/27/23 1227 [facility] [id number] Interpreted by: DONNA CADET MD Electronically signed by: Reviewed: Reviewed by Me Departure Impression Primary Impression: Atypical chest pain Additional Impression: Aortic valve stenosis Qualified Codes: I35.0 - Nonrheumatic aortic (valve) stenosis Disposition: 01 HOME, SELF-CARE Condition: Stable Departure-Patient Inst. Decision time for Depature: 12:53 Referrals: MERT DYE MD (PCP) Primary Care Physician Patient Instructions: Chest Pain, Adult ED Add. Discharge Instructions: Your blood work and heart tracing are not showing signs of an acute heart attack. Check back with your Maintenance Dispatcher at as they may want to move up your planned stent placement or have you get some additional stress testing All discharge instructions reviewed with patient and/or family. Voiced understanding. LUANNE BLANCA MD Jun 27, 2023 12:35
[2023-06-27 12:38] LABS: POTASSIUM 3.9 MMOL/L (3.6-5.0); SODIUM 134 MMOL/L (135-145)
[2023-06-27 12:39] LABS: ALANINE AMINOTRANSFERASE 13 U/L (0-55); ALBUMIN 4.4 GM/DL (3.2-4.5); ALKALINE PHOSPHATASE 121 U/L (40-136); BILIRUBIN,TOTAL 0.8 MG/DL (0.1-1.0); BUN/CREATININE RATIO 10; CALCIUM 9.8 MG/DL (8.5-10.1); CARBON DIOXIDE 26 MMOL/L (21-32); CHLORIDE 95 MMOL/L (98-107); CREATININE SERUM 0.81 MG/DL (0.60-1.30); GFR ESTIMATED 93; GLUCOSE 145 MG/DL (70-105); LIPASE 27 U/L (8-78); MAGNESIUM 1.6 MG/DL (1.6-2.4); TOTAL PROTEIN 7.2 GM/DL (6.4-8.2)
== END 2023-06-27 13:14 | disposition home or self-care (01) ==
LOC: EDUNIT# 11:51 → ER FS 11:52
DX: R07.89 Other chest pain (principal); I35.0 Nonrheumatic aortic (valve) stenosis; Z95.5 Presence of coronary angioplasty implant and graft
CPT/HCPCS: 36415; 71045; 80053; 83690; 83735; 83880; 84484; 85025; 85610; 85730; 93005; 93041